=== PATIENT | female | born 1995 | race Caucasian/White ===

== ENCOUNTER 2017-12-13 08:51 | Emergency (ER) | payer OTHER ==
[~2017-12-13] VITALS: Ht 167.6 cm; Wt 106.3 kg
[2017-12-13 11:05] VITALS: BP 120/74
== END 2017-12-13 14:06 | disposition home or self-care (01) ==
LOC: EME 08:51
DX: S80.01XA Contusion of right knee, initial encounter (principal); V43.52XA Car driver injured in collision with other type car in traffic accident, initial encounter; Y92.410 Unspecified street and highway as the place of occurrence of the external cause; Z3A.08 8 weeks gestation of pregnancy; Z33.1 Pregnant state, incidental
CPT/HCPCS: 73564; 76801; 84702; 99281; 99284

== ENCOUNTER 2018-01-14 06:22 | Emergency (ER) | payer OTHER ==
[~2018-01-14] VITALS: Ht 167.6 cm; Wt 105.0 kg
[2018-01-14] MEDS ORDERED: MOTRIN600 MG PO (07:23)
[2018-01-14 08:03] VITALS: BP 139/92
== END 2018-01-14 08:04 | disposition home or self-care (01) ==
LOC: EME 06:22
DX: S93.401A Sprain of unspecified ligament of right ankle, initial encounter (principal); W19.XXXA Unspecified fall, initial encounter
CPT/HCPCS: 73610; 99281; 99284

== ENCOUNTER 2018-06-11 14:17 | Inpatient (IN) | payer OTHER ==
[~2018-06-11] VITALS: Ht 165.1 cm; Wt 113.3 kg
[~2018-06-11 14:17] MED LIST: MOTRIN600 MG PO
[2018-06-11 14:47] VITALS: BP 125/71
[2018-06-11] MEDS ORDERED: PROAIR HFA8.5 GM IH (15:39)
[2018-06-11] MEDS ORDERED: ZANTAC150 MG PO (15:40)
[2018-06-11] MEDS ORDERED: PRENATAL TABLE1 EAC3 PO (15:41)
[2018-06-11 15:54] LABS: BASOPHIL (%) 0.4 % (0-1); EOSINOPHIL (%) 1.1 % (0-5); EOSINOPHIL COUNT 0.1 K/uL (0-0.3); HEMOGLOBIN 10.9 G/DL (11.9-15.5); IMMATURE GRANULOCYTE (%) 0.4 % (0.0-0.7); LYMPHOCYTE (%) 18.1 % (15-42); LYMPHOCYTE COUNT 2.1 K/uL (1.0-2.8); MCH 26.8 PG (29.0-34.0); MCV 81.1 FL (83-99); MONOCYTE (%) 7.6 % (3-12); MONOCYTE COUNT 0.9 K/uL (0-0.8); NEUTROPHIL (%) 72.4 % (45-76); NEUTROPHIL COUNT 8.3 K/uL (1.8-6.4); PLATELET COUNT 349 K/uL (156-360); RBC DIS.WIDTH-CV 13.4 % (11.8-14.6); RBC DIS.WIDTH-SD 38.9 % (39-53); RED BLOOD COUNT 4.07 M/uL (3.80-5.20); WHITE BLOOD COUNT 11.4 K/uL (4.1-10.2)
[2018-06-11 16:19] LABS: AMPHETAMINE NEGATIVE (500 ng/mL); BARBITURATES NEGATIVE (200 ng/mL); BENZODIAZEPINES NEGATIVE (150 ng/mL); BUPRENORPHINE NEGATIVE (10 ng/mL); COCAINE NEGATIVE (150 ng/mL); METHADONE NEGATIVE (200 ng/mL); METHAMPHETAMINE NEGATIVE (500 ng/mL); OPIATES (MORPHINE) NEGATIVE (100 ng/mL); OXYCODONE NEGATIVE (100 ng/mL); PHENCYCLIDINE NEGATIVE (25 ng/mL); PROPOXYPHENE NEGATIVE (300 ng/mL); THC CANNABINOIDS NEGATIVE (50 ng/mL); TRICYCLIC ANTIDEPRESSANTS NEGATIVE (300 ng/mL)
[2018-06-11 17:09] VITALS: BP 125/58
[2018-06-11 17:54] VITALS: BP 121/68
[2018-06-11 18:48] VITALS: BP 131/83
[2018-06-11 19:18] VITALS: BP 118/85
[2018-06-11 22:52] VITALS: BP 105/63
[2018-06-12] VITALS (29 sets, daily range): BP systolic 114–149; BP diastolic 59–93
[2018-06-13] VITALS (11 sets, daily range): BP systolic 110–140; BP diastolic 57–82
[2018-06-14 05:56] LABS: BASOPHIL (%) 0.5 % (0-1); BASOPHIL COUNT 0.1 K/uL (0-0.1); EOSINOPHIL COUNT 0.1 K/uL (0-0.3); HEMATOCRIT 29.7 % (36.0-46.0); HEMOGLOBIN 9.6 G/DL (11.9-15.5); IMMATURE GRANULOCYTE (%) 0.4 % (0.0-0.7); LYMPHOCYTE (%) 24.2 % (15-42); LYMPHOCYTE COUNT 2.5 K/uL (1.0-2.8); MCH 26.5 PG (29.0-34.0); MCHC 32.3 G/DL (30.0-36.0); MONOCYTE (%) 8.7 % (3-12); MONOCYTE COUNT 0.9 K/uL (0-0.8); NEUTROPHIL (%) 65.2 % (45-76); NEUTROPHIL COUNT 6.9 K/uL (1.8-6.4); PLATELET COUNT 322 K/uL (156-360); RBC DIS.WIDTH-CV 13.5 % (11.8-14.6); RBC DIS.WIDTH-SD 40.3 % (39-53); RED BLOOD COUNT 3.62 M/uL (3.80-5.20); WHITE BLOOD COUNT 10.5 K/uL (4.1-10.2)
[2018-06-14 07:08] VITALS: BP 111/63
[2018-06-14 15:14] VITALS: BP 134/78
[2018-06-14 23:00] VITALS: BP 117/62
[2018-06-15] MEDS ORDERED: Tylenol Extra Streng PO (09:19)
[2018-06-15] MEDS ORDERED: IBUPROFEN800 MG PO (09:20)
== END 2018-06-15 15:03 | disposition home or self-care (01) | DRG 774 ==
LOC: LDRP-OP 14:17 → 2WEST 14:18 → LDRP-OP 07-12 12:14
PROVIDERS: Advanced Practice Midwife
PROC: 3E0P7VZ Introduction of Hormone into Female Reproductive, Via Natural or Artificial Opening (ICD-10-PCS; principal; 2018-06-11)
PROC: 0U7C7ZZ Dilation of Cervix, Via Natural or Artificial Opening (ICD-10-PCS; 2018-06-12)
PROC: 10907ZC Drainage of Amniotic Fluid, Therapeutic from Products of Conception, Via Natural or Artificial Opening (ICD-10-PCS; 2018-06-12)
PROC: 00HU33Z Insertion of Infusion Device into Spinal Canal, Percutaneous Approach (ICD-10-PCS; 2018-06-12)
PROC: 3E0R3BZ Introduction of Anesthetic Agent into Spinal Canal, Percutaneous Approach (ICD-10-PCS; 2018-06-12)
PROC: 0HQ9XZZ Repair Perineum Skin, External Approach (ICD-10-PCS; 2018-06-13)
PROC: 10E0XZZ Delivery of Products of Conception, External Approach (ICD-10-PCS; 2018-06-13)
DX: O70.0 First degree perineal laceration during delivery (principal); O76 Abnormality in fetal heart rate and rhythm complicating labor and delivery; O99.02 Anemia complicating childbirth; D62 Acute posthemorrhagic anemia; D50.9 Iron deficiency anemia, unspecified; O36.8130 Decreased fetal movements, third trimester, not applicable or unspecified; Z3A.40 40 weeks gestation of pregnancy; Z37.0 Single live birth; O99.214 Obesity complicating childbirth; E66.9 Obesity, unspecified; Z68.36 Body mass index [BMI] 36.0-36.9, adult; O98.52 Other viral diseases complicating childbirth; B00.1 Herpesviral vesicular dermatitis; O99.62 Diseases of the digestive system complicating childbirth; K21.9 Gastro-esophageal reflux disease without esophagitis; O99.52 Diseases of the respiratory system complicating childbirth; J45.20 Mild intermittent asthma, uncomplicated
CPT/HCPCS: 85025; 94799; C1755; G0378; J0595; J3010; J7120